=== PATIENT | female | born 1955 | race African-American/Black ===

== ENCOUNTER 2016-04-02 08:01 | Emergency (ER) | payer MEDICARE, MEDICAID ==
[2016-04-02] MEDS ORDERED: ASPIRIN 81 MG TABLET, CHEWABLE PO ONE (09:52)
[2016-04-02 10:38] LABS: ABSOLUTE BASOPHILS # (AUTO) 0.1 10^3/uL (0.0-0.2); ABSOLUTE EOSINOPHILS # (AUTO) 0.1 10^3/uL (0.0-0.6); ABSOLUTE LYMPHOCYTES (AUTO) 4.2 10^3/uL (0.5-4.7); ABSOLUTE MONOCYTES (AUTO) 0.5 10^3/uL (0.1-1.4); ABSOLUTE NEUT (AUTO) 4.5 10^3/uL (1.7-8.2); BASOPHILS % (AUTO) 1.4 % (0-2); EOSINOPHILS % (AUTO) 0.9 % (0-6); LYMPHOCYTES % (AUTO) 44.7 % (13-45); MEAN CORPUSCULAR HEMOGLOBIN 27.9 pg (27.0-33.4); MEAN CORPUSCULAR HGB CONC 33.3 g/dL (32.0-36.0); MEAN CORPUSCULAR VOLUME 84 fl (80-97); MONOCYTES % (AUTO) 4.8 % (3-13); RED BLOOD COUNT 4.28 10^6/uL (3.72-5.28); SEGMENTED NEUTROPHILS % (AUTO) 48.2 % (42-78); WHITE BLOOD COUNT 9.4 10^3/uL (4.0-10.5)
[2016-04-02 10:50] LABS: ALANINE AMINOTRANSFERASE 15 U/L (9-52); ALBUMIN 3.9 g/dL (3.5-5.0); ALKALINE PHOSPHATASE 89 U/L (38-126); ANION GAP 13 (5-19); ASPARTATE AMINO TRANSFERASE 32 U/L (14-36); BILIRUBIN,TOTAL 0.3 mg/dL (0.2-1.3); BLOOD UREA NITROGEN 9 mg/dL (7-20); CARBON DIOXIDE 27 mmol/L (22-30); CHLORIDE 105 mmol/L (98-107); CREATINE KINASE 98 U/L (30-135); CREATININE RESULT 0.72 mg/dL (0.52-1.25); GLUCOSE 94 mg/dL (75-110); POTASSIUM 3.9 mmol/L (3.6-5.0); SODIUM 144.5 mmol/L (137-145); TOTAL PROTEIN 7.3 g/dL (6.3-8.2)
[2016-04-02 10:59] LABS: PARTIAL THROMBOPLASTIN TIME 26.9 SEC (23.5-35.8)
[2016-04-02 11:04] LABS: CREATINE KINASE MB < 0.22 ng/mL (<4.55); TROPONIN I < 0.012 ng/mL
--- NOTE | 2016-04-02 13:41 | EKG REPORT ---
SEVERITY:- ABNORMAL ECG - SINUS RHYTHM PROBABLE INFERIOR INFARCT, AGE INDETERMINATE ABNRM R PROG, CONSIDER ASMI OR LEAD PLACEMENT : Confirmed by: Hilda Haley MD 02-Apr-2016 13:41:15
--- NOTE | 2016-04-02 13:57 | ER Document Report ---
ED Extremity Problem, Upper - General Chief Complaint: Arm Pain Stated Complaint: NECK PAIN Mode of Arrival: Ambulatory Information source: Patient Notes: 60 y/o F presents to ED c/o right shoulder pain TRAVEL OUTSIDE OF THE [place] IN LAST 30 DAYS: No - Related Data Allergies/Adverse Reactions: Sulfa (Sulfonamide Antibiotics) Allergy (Verified 04/02/16 08:12) sulfamethoxazole [From Septra] Allergy (Verified 04/02/16 08:12) trimethoprim [From Septra] Allergy (Verified 04/02/16 08:12) Past Medical History - Social History Smoking Status: Current Every Day Smoker Chew tobacco use (# tins/day): No Frequency of alcohol use: None Drug Abuse: None Family History: Arthritis, CAD, CVA, DM, Hyperlipidemia, Hypertension, Malignancy, Thyroid Disfunction Patient has suicidal ideation: No Patient has homicidal ideation: No - Past Medical History Cardiac Medical History: Reports: Hx Coronary Artery Disease, Hx Heart Attack, Hx Hypercholesterolemia, Hx Hypertension Pulmonary Medical History: Reports: Hx Asthma, Hx Bronchitis, Hx COPD, Hx Pneumonia Neurological Medical History: Reports: Hx Migraine Endocrine Medical History: Reports: Hx Diabetes Mellitus Type 2 GI Medical History: Reports: Hx Gastritis Musculoskeltal Medical History: Reports Hx Arthritis Psychiatric Medical History: Reports: Hx Anxiety, Hx Depression Past Surgical History: Reports: Hx Section - x2, Hx Cholecystectomy, Hx Hysterectomy, Hx Orthopedic Surgery - Immunizations Immunizations up to date: Yes Hx Diphtheria, Pertussis, Tetanus Vaccination: Yes Physical Exam - Vital signs Vitals: Temp Pulse Resp BP Pulse Ox 98.0 F 86 22 H 146/74 H 97 04/02/16 08:06 04/02/16 08:06 04/02/16 08:06 04/02/16 08:06 04/02/16 08:06 Course - Vital Signs Vital signs: Temp Pulse Resp BP Pulse Ox 97.6 F 78 16 150/57 H 97 04/02/16 14:06 04/02/16 14:06 04/02/16 14:06 04/02/16 14:06 04/02/16 14:06 - Laboratory Result Diagrams: 04/02/16 10:14 04/02/16 10:14 Laboratory results interpreted by me: 04/02/16 10:14 RDW 15.0 H Discharge - Discharge Clinical Impression: Right arm pain Right shoulder pain Qualifiers: Chronicity: acute Qualified Code(s): M25.511 - Pain in right shoulder Condition: Stable Disposition: HOME, SELF-CARE Instructions: Arm Pain, Nonspecific ([facility]), Anti-Inflammatory Medication ([facility]) Additional Instructions: Follow-up with your primary care provider tomorrow as discussed. Return to the emergency department for any worsening symptoms or concerns. Prescriptions: Naproxen [Naprosyn 375 Mg Tablet] 375 mg PO BIDP PRN #10 tablet PRN Reason: Forms: Elevated Blood Pressure Referrals: [facility] [Primary Care Provider] - Follow up tomorrow
[2016-04-02 14:09] VITALS: BP 150/57
== END 2016-04-02 14:06 | disposition home or self-care (01) ==
LOC: ER 08:01
DX: M79.601 Pain in right arm (principal); M25.511 Pain in right shoulder; F17.200 Nicotine dependence, unspecified, uncomplicated; I25.10 Atherosclerotic heart disease of native coronary artery without angina pectoris; E78.00 Pure hypercholesterolemia, unspecified; I10 Essential (primary) hypertension; E11.9 Type 2 diabetes mellitus without complications; J44.9 Chronic obstructive pulmonary disease, unspecified; Z88.2 Allergy status to sulfonamides; Z88.3 Allergy status to other anti-infective agents; Z90.710 Acquired absence of both cervix and uterus; Z90.49 Acquired absence of other specified parts of digestive tract; I25.2 Old myocardial infarction
CPT/HCPCS: 93005; 99284; 36415; 82553; 82550; 85025; 85610; 85730; 80053; 84484; 71020; 73030; 70450; 93010; A9270

== ENCOUNTER → 2016-05-29 | Outpatient (CLI) | payer MEDICARE, MEDICAID | LOC: RAD 13:22 | PROVIDERS: ATTEND Physician Assistant | DX: M25.511 Pain in right shoulder (principal); M54.2 Cervicalgia | CPT/HCPCS: 72141 ==

== ENCOUNTER 2016-10-22 07:42 | Day surgery (SDC) | payer MEDICARE, MEDICAID ==
--- NOTE | 2016-10-21 11:08 | HISTORY AND PHYSICAL E ---
History and Physical NAME: AMOS REYNOSO : 1955 AGE: 61Y ADMITTED: 10/22/2016 ROOM: CHIEF COMPLAINT: Constipation, history of polyps, a planned colonoscopy. HISTORY OF PRESENT ILLNESS: The patient did have colon exam which showed polyp in 2013. Because of history of polyps, diverticulosis and constipation, patient admitted for colonoscopy. PAST SURGICAL HISTORY: 1. . 2. Back surgery. 3. Cholecystectomy. FAMILY HISTORY: Father is alive, kidney dialysis. Mom is alive. SOCIAL HISTORY: The patient is . She smokes a pack of cigarettes every 3 days. REVIEWING OF SYSTEMS: RESPIRATORY: Asthma. CARDIAC: Hypertension and high cholesterol. ENDOCRINE: Negative. GASTROINTESTINAL: Constipation, abdominal pain. PHYSICAL EXAMINATION: VITAL SIGNS: Blood pressure 120/70, pulse 80, respirations 20, temperature is 98. HEAD, EYES, EARS, NOSE, THROAT: Normal. ABDOMEN: Soft. NEUROLOGIC: Negative. CONCLUSION: 1. Changed bowel habits. 2. Abdominal pain. 3. History of polyps. 4. Constipation. PLAN: Colonoscopy scheduled for 10/22. DICTATING PHYSICIAN: DORIS GARCIA M.D. [id number] PHY#: [id number] ID: [id number] JOB#: [id number] ACCT: [id number] cc:DORIS GARCIA M.D. >
[~2016-10-22 07:42] MED LIST: EPINEPHRINE INJ 1 MG/10 ML DISP.SYRIN ONE; FLUMAZENIL INJ 0.5 MG/5 ML VIAL IV ONE; GLUCAGON,HUMAN RECOMB 1 MG INJ ONE; GLYCOPYRROLATE INJ 0.4 MG/2 ML VIAL ONE; LIDOCAINE 2% JELLY 30 ML TUBE ONE; NALOXONE HCL INJ/PF 0.4 MG/1 ML SDV ONE; ONDANSETRON HCL INJ/PF 4 MG/2 ML SDV ONE
[2016-10-22] MEDS: MIDAZOLAM 2 MG/2 ML INJ ONE ×3 (08:20→08:30)
[2016-10-22] MEDS: FENTANYL CITRATE INJ/PF 100 MCG/2 ML AMPUL ONE ×2 (08:22→08:26)
--- NOTE | 2016-10-22 09:33 | OPERATIVE REPORT E ---
Operative Report NAME: AMOS REYNOSO : 1955 AGE: 61Y DATE OF SURGERY: 10/22/2016 ROOM: PREOPERATIVE DIAGNOSES: 1. Abdominal pain. 2. Change in bowel habits. 3. History of polyps. POSTOPERATIVE DIAGNOSES: 1. Diminutive polyp in rectum. 2. Diminutive polyp rectosigmoid. PROCEDURE: Colonoscopy to the cecum. SURGEON: DORIS GARCIA M.D. ANESTHESIA: Versed 4 and fentanyl 100. PROCEDURE: Rectal exam shows diminutive polyp in rectum. Sigmoid diminutive polyp. Descending colon normal. Transverse colon normal. Ascending normal. Cecum normal. Scope withdrawn from cecum, ascending, transverse, descending, sigmoid all the way to the rectum. The patient did have moderate amount of stool scattered around her colon. Lavage flush. Again, scope withdrawn from cecum. Ascending normal. Prominent ileocecal valve. Patient does have scarring adhesions from in the past. I did not see any malignancy. Diminutive polyps. No blockage. No obstruction. CONCLUSION: Complete colonoscopy to the cecum. Diminutive polyps in rectum and sigmoid. PLAN: We will do lab studies. Continue present management. Give patient copy of her operative report to take to her primary doctor. DICTATING PHYSICIAN: DORIS GARCIA M.D. [id number] Y#: [id number] ID: [id number] JOB#: [id number] ACCT: [id number] cc:DORIS GARCIA M.D. >
[2016-10-22 09:49] VITALS: BP 136/71
[2016-10-22 10:04] LABS: ABSOLUTE BASOPHILS # (AUTO) 0.1 10^3/uL (0.0-0.2); ABSOLUTE EOSINOPHILS # (AUTO) 0.1 10^3/uL (0.0-0.6); ABSOLUTE LYMPHOCYTES (AUTO) 3.5 10^3/uL (0.5-4.7); ABSOLUTE MONOCYTES (AUTO) 0.6 10^3/uL (0.1-1.4); ABSOLUTE NEUT (AUTO) 6.2 10^3/uL (1.7-8.2); BASOPHILS % (AUTO) 0.6 % (0-2); EOSINOPHILS % (AUTO) 0.6 % (0-6); HEMATOCRIT 35.6 % (36.0-47.0); HEMOGLOBIN 11.8 g/dL (12.0-15.5); HGB HCT DIFFERENCE -0.2; LYMPHOCYTES % (AUTO) 33.4 % (13-45); MEAN CORPUSCULAR HEMOGLOBIN 28.5 pg (27.0-33.4); MEAN CORPUSCULAR HGB CONC 33.1 g/dL (32.0-36.0); MEAN CORPUSCULAR VOLUME 86 fl (80-97); MONOCYTES % (AUTO) 6.1 % (3-13); RED BLOOD COUNT 4.14 10^6/uL (3.72-5.28); RED CELL DISTRIBUTION WIDTH 14.7 % (11.5-14.0); SEGMENTED NEUTROPHILS % (AUTO) 59.3 % (42-78); WHITE BLOOD COUNT 10.4 10^3/uL (4.0-10.5)
[2016-10-22 10:30] LABS: ALANINE AMINOTRANSFERASE 15 U/L (9-52); ALBUMIN 3.9 g/dL (3.5-5.0); ALKALINE PHOSPHATASE 92 U/L (38-126); AMYLASE 49 U/L (30-110); ANION GAP 15 (5-19); ASPARTATE AMINO TRANSFERASE 15 U/L (14-36); BILIRUBIN,DIRECT 0.3 mg/dL (0.0-0.4); BILIRUBIN,TOTAL 0.5 mg/dL (0.2-1.3); BLOOD UREA NITROGEN 7 mg/dL (7-20); C-REACTIVE PROTEIN 7.4 mg/L (<10.0); CARBON DIOXIDE 22 mmol/L (22-30); CHLORIDE 105 mmol/L (98-107); CREATININE RESULT 0.75 mg/dL (0.52-1.25); GLUCOSE 96 mg/dL (75-110); LIPASE 45.8 U/L (23-300); POTASSIUM 3.7 mmol/L (3.6-5.0); SODIUM 142.4 mmol/L (137-145); TOTAL PROTEIN 6.8 g/dL (6.3-8.2)
--- NOTE | 2016-10-22 15:06 | DISCHARGE SUMMARY E ---
Discharge Summary NAME: AMOS REYNOSO : 1955 AGE: 61Y ADMITTED: 10/22/2016 DISCHARGED: 10/22/2016 HISTORY: The patient is 61, ALLERGIC TO SULFA, presented with abdominal pain and change in bowel habits. She does have a remote history of polyps. Today's colonoscopy shows no diverticulosis. She does have previous history of polyps. Today I did not see diverticulosis. She does have diminutive polyps too small to biopsy in the rectum and the sigmoid. DISCHARGE PLAN: 1. Lab studies. 2. Soft diet. 3. Follow-up office visit in the next few days. MEDICATIONS: 1. She takes MiraLax. 2. Amitiza. 3. Ultram. 4. Xanax. 5. Zyrtec. CONCLUSIONS: 1. Abdominal pain, etiology undetermined. 2. Diminutive rectosigmoid polyps. DICTATING PHYSICIAN: DORIS GARCIA M.D. [id number] PHY#: [id number] ID: [id number] JOB#: [id number] ACCT: [id number] cc:DORIS GARCIA M.D. >
== END 2016-10-22 10:10 | disposition home or self-care (01) ==
LOC: END 07:42
PROVIDERS: ATTEND Specialist
PROC: 0DJD8ZZ Inspection of Lower Intestinal Tract, Via Natural or Artificial Opening Endoscopic (ICD-10-PCS; principal; 2016-10-22 08:00)
DX: D12.7 Benign neoplasm of rectosigmoid junction (principal); K66.0 Peritoneal adhesions (postprocedural) (postinfection); F17.210 Nicotine dependence, cigarettes, uncomplicated; I10 Essential (primary) hypertension; E78.00 Pure hypercholesterolemia, unspecified; J45.909 Unspecified asthma, uncomplicated; Z88.2 Allergy status to sulfonamides; Z79.899 Other long term (current) drug therapy
CPT/HCPCS: 45378; 36415; 82150; 83690; 85025; 86140; 80053; J2250; J3010; J1610; J2405; J0171; J2310; J3490

== ENCOUNTER 2016-11-06 09:35 | Day surgery (SDC) | payer MEDICARE, MEDICAID ==
[~2016-11-06 09:35] MED LIST changes: +FENTANYL CITRATE INJ/PF 100 MCG/2 ML AMPUL ONE; -GLUCAGON,HUMAN RECOMB 1 MG INJ ONE; -LIDOCAINE 2% JELLY 30 ML TUBE ONE
--- NOTE | 2016-11-06 10:26 | HISTORY AND PHYSICAL E ---
History and Physical NAME: AMOS REYNOSO : 1955 AGE: 61Y ADMITTED: 11/06/2016 ROOM: CHIEF COMPLAINT: 1. Anemia. 2. Fullness in the left upper quadrant. The patient is to be admitted on the for upper endoscopy. HISTORY OF PRESENT ILLNESS: Patient had upper GI done back on 04/05/2007. Upper GI was unremarkable. Small bowel series unremarkable. The patient presented at this time regarding fullness in the stomach and anemia. Colonoscopy on 01/04/2014 shows rectal polyps, benign. The CEA is normal. Patient did have colonoscopy on October 22. Presented for colonoscopy; shows the following: He did have history of polyps, diverticulosis. SURGICAL HISTORY: 1. . 2. Back surgery. 3. Cholecystectomy. FAMILY HISTORY: Father is alive; he is on dialysis. Mom is alive. SOCIAL HISTORY: She is . Smokes pack of cigarettes every 3 days. REVIEWING OF SYSTEMS: RESPIRATORY: Asthma. CARDIAC: Hypertension. ENDOCRINE: Negative. GASTROINTESTINAL: Abdominal pain, anemia, constipation. PHYSICAL EXAMINATION: VITAL SIGNS: Blood pressure 110/70, pulse 80, respirations 18, temperature is 98. HEAD, EYES, EARS, NOSE, THROAT: Normal. ABDOMEN: Soft. NEUROLOGIC: Exam negative. MEDICATIONS: Patient takes the followin. Prevacid. 2. At times she is on Protonix. 3. Zyrtec. 4. Tramadol. CONCLUSION: 1. ANEMIA. HEMOGLOBIN 11; HEMATOCRIT 35. 2. FULLNESS, LEFT UPPER QUADRANT. PLAN: 1. Patient to have abdominal CT and upper endoscopy. 2. Upper scope scheduled for 11/06/2016; today is 10/30/2016. DICTATING PHYSICIAN: DORIS GARCIA M.D. [id number] PHY#: [id number] ID: [id number] JOB#: [id number] ACCT: [id number] cc:DORIS GARCIA M.D. >
[2016-11-06] MEDS: MIDAZOLAM 2 MG/2 ML INJ ONE ×2 (10:32→10:37)
[2016-11-06 11:46] VITALS: BP 143/73
--- NOTE | 2016-11-07 09:59 | DISCHARGE SUMMARY E ---
Discharge Summary NAME: AMOS REYNOSO : 1955 AGE: 61Y ADMITTED: 11/06/2016 DISCHARGED: 11/06/2016 HOSPITAL COURSE: The patient is a 61-year-old female on the following medications: Ambien, Amitiza, Bentyl, Dexilant, Miralax, Neurontin, Premarin, ProAir, Ultram, Valium, verapamil, Xanax, Zoloft, Zyrtec. Today's upper scope was successful. She had no ulcers, no malignancy. She did have a 2 cm hiatus hernia with no stricture, no varices, mild esophagitis. Prominent gastric folds with no ulcer, mild gastritis. Edematous duodenal bulbs. Edematous pulse with no ulcers and moderate duodenitis. DISCHARGE PLAN: Assurance. Awaiting CT report at [facility]. Patient to continue her Dexilant. We will see her in the office in the next few days. DICTATING PHYSICIAN: DORIS GARCIA M.D. [id number] PHY#: [id number] ID: [id number] JOB#: [id number] ACCT: [id number] cc:DORIS GARCIA M.D. >
--- NOTE | 2016-11-07 10:25 | OPERATIVE REPORT E ---
Operative Report NAME: AMOS REYNOSO : 1955 AGE: 61Y DATE OF SURGERY: 11/06/2016 ROOM: PREOPERATIVE DIAGNOSIS: Abdominal pain. POSTOPERATIVE DIAGNOSES: 1. Hiatus hernia, 1 cm. 2. Mild esophagitis. 3. Mild gastritis. 4. Moderate duodenitis. 5. No ulcers, no malignancy. PROCEDURE: Esophagoscopy, gastroscopy, duodenoscopy. SURGEON: DORIS GARCIA M.D. ANESTHESIA: Versed 4 mg and Fentanyl 100 mcg. TISSUE REMOVED OR ALTERED: None. DESCRIPTION OF PROCEDURE: After adequate sedation, the baby scope passed with some difficulty into the esophagus. Esophagoscopy: Junction at 37 cm, mild esophagitis, 1-cm hiatus hernia. Gastroscopy: No ulcers, prominent folds, mild gastritis. Duodenoscopy: Edematous folds with no ulcers, moderate duodenitis. CONCLUSIONS: 1. Hiatus hernia. 2. Mild esophagitis. 3. Mild gastritis. 4. Edematous folds with duodenitis. PLAN: The patient tolerated the procedure well, discharged to her room in stable condition. DICTATING PHYSICIAN: DORIS GARCIA M.D. [id number] [id number] PHY#: [id number] ID: [id number] JOB#: [id number] ACCT: [id number] cc:DORIS GARCIA M.D. >
== END 2016-11-06 12:00 | disposition home or self-care (01) ==
LOC: END 09:35
PROVIDERS: ATTEND Specialist
PROC: 0DJD8ZZ Inspection of Lower Intestinal Tract, Via Natural or Artificial Opening Endoscopic (ICD-10-PCS; principal; 2016-11-06 10:00)
DX: K44.9 Diaphragmatic hernia without obstruction or gangrene (principal); D64.9 Anemia, unspecified; K29.70 Gastritis, unspecified, without bleeding; K29.80 Duodenitis without bleeding; J45.909 Unspecified asthma, uncomplicated; I10 Essential (primary) hypertension; F17.210 Nicotine dependence, cigarettes, uncomplicated; Z79.899 Other long term (current) drug therapy; Z79.51 Long term (current) use of inhaled steroids; Z79.891 Long term (current) use of opiate analgesic
CPT/HCPCS: 43235; J2250; J3010; J2405; J0171; J2310; J3490

== ENCOUNTER → 2016-11-17 | Outpatient (CLI) | payer MEDICARE, MEDICAID ==
--- NOTE | 2016-11-17 13:16 | RADIOLOGY REPORT (SQ) ---
EXAM DESCRIPTION: CT SOFT TISSUE NECK WITHOUT COMPLETED DATE/TIME: 11/17/2016 9:22 am REASON FOR STUDY: DYSPHAGIA (R13.10) R13.10 DYSPHAGIA, UNSPECIFIED COMPARISON: CT brain 07/09/2014, 08/01/2015, 04/02/2016 MRI cervical spine 05/29/2016 Barium swallow 11/17/2016 TECHNIQUE: Noncontrast scanning from skull base through lung apices with review of bone, soft tissue and lung windows. Reconstructed coronal and sagittal MPR images reviewed. All images stored on PAC S. All CT scanners at this facility use dose modulation, iterative reconstruction, and/or weight based d osing when appropriate to reduce radiation dose to as low as reasonably achievable (ALARA). [facility]: Dose Right [facility]: CareDose [facility]: Dose Right [facility]: Teradose 4D [facility]: [employer] RADIATION DOSE: 23 mGy. LIMITATIONS: None. FINDINGS: SKULL BASE: Intact. MAJOR SALIVARY GLANDS: No solid or cystic masses. No inflammatory changes. LYMPHADENOPATHY: No adenopathy. Left jugulodigastric lymph node upper limits of normal, 13 x 8 mm si ze. MUCOSAL MASSES OR ASYMMETRY: No mucosal masses or asymmetry. There are mildly prominent lingual tons ils, best shown on axial images go 35 through 42, and sagittal images 67 through 74. Mucosal spaces are otherwise unremarkable. LARYNX/CORDS: No abnormal findings. LUNG APICES: Clear. BONES: Old cervical spine fusion at C4-5 without hardware. Disc space narrowing with mild anterior p osterior osteophyte formation and disc bulge at C5-6. Due mild bilateral C5-6 foraminal narrowing fr om facet and uncovertebral hypertrophy. Moderate right C3-4 foraminal narrowing from facet and uncov ertebral hypertrophy. THYROID: Normal size. No masses. PARANASAL SINUSES: Clear. OTHER: No other significant finding. IMPRESSION: No CT findings to explain history dysphagia other than prominent lingual tonsils. TECHNICAL DOCUMENTATION: JOB ID: [id number] Quality ID # [id number]: Final reports with documentation of one or more dose reduction techniques (e.g., Au tomated exposure control, adjustment of the mA and/or kV according to patient size, use of iterative reconstruction technique) 2010 [employer]- All Rights Reserved
== END ==
LOC: RAD 08:58
PROVIDERS: ATTEND Specialist
DX: R13.10 Dysphagia, unspecified (principal)
CPT/HCPCS: 70490; 74210

== ENCOUNTER 2017-07-19 21:58 | Emergency (ER) | payer MEDICARE ==
[2017-07-19 22:19] VITALS: BP 147/76
[2017-07-19] MEDS ORDERED: VALACYCLOVIR HCL 500 MG TABLET PO ONE (22:57)
--- NOTE | 2017-07-19 22:59 | ER Document Report ---
HPI - HPI Patient complains to provider of: Skin rash Onset: Other - 2 days Onset/Duration: Persistent Quality of pain: Burning Pain Level: 3 Context: Patient complains of painful rash to right upper chest area. Patient was concerned that she might have been bit by insects. Patient states rash has been painful. Patient denies any fever. Associated Symptoms: Other - Painful rash to the right upper chest area. denies : Fever Exacerbated by: Denies Relieved by: Denies Similar symptoms previously: No Recently seen / treated by doctor: No - ROS ROS below otherwise negative: Yes Systems Reviewed and Negative: Yes All other systems reviewed and negative - CONSTITUTIONAL Constitutional: DENIES: Fever - CARDIOVASCULAR Cardiovascular: DENIES: Chest pain - RESPIRATORY Respiratory: DENIES: Trouble Breathing, Coughing - GASTROINTESTINAL Gastrointestinal: DENIES: Nausea, Patient vomiting - REPRODUCTIVE Reproductive: DENIES: : - DERM Skin Problems: Rash Past Medical History - General Information source: Patient - Social History Smoking Status: Current Every Day Smoker Smoking Education Provided: Yes Frequency of alcohol use: None Drug Abuse: None Occupation: None Family History: Arthritis, CAD, CVA, DM, Hyperlipidemia, Hypertension, Malignancy, Thyroid Disfunction - Past Medical History Cardiac Medical History: Reports: Hx Heart Attack - 2012, Hx Hypercholesterolemia, Hx Hypertension Denies: Hx Coronary Artery Disease Pulmonary Medical History: Reports: Hx Asthma, Hx Bronchitis Denies: Hx COPD, Hx Pneumonia Neurological Medical History: Reports: Hx Migraine. Denies: Hx Cerebrovascular Accident, Hx Seizures Endocrine Medical History: Reports: Hx Diabetes Mellitus Type 2 GI Medical History: Reports: Hx Gastritis Musculoskeltal Medical History: Reports Hx Arthritis Psychiatric Medical History: Reports: Hx Anxiety, Hx Depression Past Surgical History: Reports: Hx Section - x2, Hx Cholecystectomy, Hx Hysterectomy, Hx Orthopedic Surgery - Immunizations Immunizations up to date: Yes Hx Diphtheria, Pertussis, Tetanus Vaccination: Yes Hx Pneumococcal Vaccination: 03/23/16 Vertical Provider Document - CONSTITUTIONAL Agree With Documented VS: Yes Exam Limitations: No Limitations General Appearance: WD/WN, No Apparent Distress - INFECTION CONTROL TRAVEL OUTSIDE OF THE [place] IN LAST 30 DAYS: No - HEENT HEENT: Atraumatic, Normocephalic - NECK Neck: Normal Inspection - RESPIRATORY Respiratory: Breath Sounds Normal, No Respiratory Distress - CARDIOVASCULAR Cardiovascular: Regular Rate, Regular Rhythm - BACK Back: Normal Inspection - MUSCULOSKELETAL/EXTREMETIES Musculoskeletal/Extremeties: CRUZ LORENZO - NEURO Level of Consciousness: Awake, Alert, Appropriate Motor/Sensory: No Motor Deficit - DERM Integumentary: Warm, Dry, Rash - Erythematous lesions to right anterior chest wall, some lesions vesicular appearing others with some crusting Course - Re-evaluation Re-evalutation: 07/20/17 Patient with skin rash that appears to be consistent with herpes zoster. Patient nontoxic in appearance. No skin lesions noted to facial area, patient denies any ocular complaints. Will treat her symptoms with antiviral medication. Patient takes tramadol for pain symptoms at home. Patient encouraged to follow-up with primary doctor for recheck. - Vital Signs Vital signs: Temp Pulse Resp BP Pulse Ox 98.6 F 90 22 H 147/76 H 94 07/19/17 22:15 07/19/17 22:15 07/19/17 22:15 07/19/17 22:15 07/19/17 22:15 Discharge - Discharge Clinical Impression: Shingles Qualifiers: Herpes zoster complications: without complications Qualified Code(s): B02.9 - Zoster without complications Condition: Stable Disposition: HOME, SELF-CARE Instructions: Shingles ([facility]) Additional Instructions: Return immediately for any new or worsening symptoms Followup with your primary care provider, call tomorrow to make a followup appointment Take your tramadol that you have at home as directed for pain relief Prescriptions: Valacyclovir HCl [Valacyclovir] 1,000 mg PO TID #20 tablet Referrals: ELDA CHÁVEZ PA-C [PHYSICIAN HEARING CONSULTANT] - Follow up tomorrow
== END 2017-07-19 23:30 | disposition home or self-care (01) ==
LOC: ER 21:58
DX: B02.9 Zoster without complications (principal); F17.200 Nicotine dependence, unspecified, uncomplicated; I25.2 Old myocardial infarction; I10 Essential (primary) hypertension; J45.909 Unspecified asthma, uncomplicated; E11.9 Type 2 diabetes mellitus without complications
CPT/HCPCS: 99282; A9270

== ENCOUNTER 2017-09-16 06:39 | Emergency (ER) | payer MEDICARE ==
--- NOTE | 2017-09-16 07:38 | ER Document Report ---
ED General - General Chief Complaint: Insect Bite Stated Complaint: FOOT PAIN Time Seen by Provider: 09/16/17 07:38 Mode of Arrival: Ambulatory TRAVEL OUTSIDE OF THE [place] IN LAST 30 DAYS: No - HPI Notes: 62-year-old female with a history of diabetes presents to the ED with complaints of having bilateral insects bites he for the last 3 days. Worse with time, has tried zbbr-yzb-twfamod calamine lotion without relief, reports itching and burning. Itching is 4 out of 10, constant. Denies any open wounds or drainage. Patient reports chills, denies fevers. Denies chest pain, palpitations, shortness of breath, dyspnea, nausea, vomiting, diarrhea, abdominal pain, hematuria,blurred vision, double vision, loss of vision, speech changes, LH, dizziness, syncope, headaches, wheezing, ST, URI, neck pain, weakness, bowel or bladder dysfunction, saddle anesthesia, numbness or tingling in bilateral upper or lower extremities equally, muscle paralysis, weakness in bilateral upper or lower extremities equally or rash. - Related Data Allergies/Adverse Reactions: Sulfa (Sulfonamide Antibiotics) Allergy (Verified 11/06/16 09:51) sulfamethoxazole [From Septra] Allergy (Verified 11/06/16 09:51) trimethoprim [From Novra] Allergy (Verified 11/06/16 09:51) Past Medical History - General Information source: Patient - Social History Smoking Status: Unknown if Ever Smoked Family History: Arthritis, CAD, CVA, DM, Hyperlipidemia, Hypertension, Malignancy, Thyroid Disfunction - Past Medical History Cardiac Medical History: Reports: Hx Heart Attack - 2012, Hx Hypercholesterolemia, Hx Hypertension Denies: Hx Coronary Artery Disease Pulmonary Medical History: Reports: Hx Asthma, Hx Bronchitis Denies: Hx COPD, Hx Pneumonia Neurological Medical History: Reports: Hx Migraine. Denies: Hx Cerebrovascular Accident, Hx Seizures Endocrine Medical History: Reports: Hx Diabetes Mellitus Type 2 GI Medical History: Reports: Hx Gastritis Musculoskeltal Medical History: Reports Hx Arthritis Psychiatric Medical History: Reports: Hx Anxiety, Hx Depression Past Surgical History: Reports: Hx Section - x2, Hx Cholecystectomy, Hx Hysterectomy, Hx Orthopedic Surgery - Immunizations Immunizations up to date: Yes Hx Diphtheria, Pertussis, Tetanus Vaccination: Yes Hx Pneumococcal Vaccination: 03/23/16 Review of Systems - Review of Systems Constitutional: See HPI EENT: No symptoms reported Cardiovascular: No symptoms reported Respiratory: No symptoms reported Gastrointestinal: No symptoms reported Genitourinary: No symptoms reported Female Genitourinary: No symptoms reported Musculoskeletal: No symptoms reported Skin: See HPI Hematologic/Lymphatic: No symptoms reported Neurological/Psychological: No symptoms reported Physical Exam - Vital signs Vitals: Temp Pulse Resp BP Pulse Ox 99.4 F 85 18 170/88 H 97 09/16/17 06:45 09/16/17 06:45 09/16/17 06:45 09/16/17 06:45 09/16/17 06:45 - Notes Notes: PHYSICAL EXAMINATION: GENERAL: Well-appearing, well-nourished and in no acute distress. HEAD: Atraumatic, normocephalic. EYES: Pupils equal round and reactive to light, extraocular movements intact, conjunctiva are normal. ENT: Nares patent, oropharynx clear without exudates. Moist mucous membranes. NECK: Normal range of motion, supple without lymphadenopathy LUNGS: Breath sounds clear to auscultation bilaterally and equal. No wheezes rales or rhonchi. HEART: Regular rate and rhythm without murmurs ABDOMEN: Soft, nontender, nondistended abdomen. No guarding, no rebound. No masses appreciated. Female : deferred Musculoskeletal: Normal range of motion, no pitting or edema. No cyanosis. NEUROLOGICAL: Cranial nerves grossly intact. Normal speech, normal gait. Normal sensory, motor exams PSYCH: Normal mood, normal affect. SKIN: Warm, Dry, normal turgor, no rashes or lesions noted. Noted erythema to bilateral lower feet with bug bites. No surrounding erythema or lymphadenopathy Course - Re-evaluation Re-evalutation: 09/22/17 07:07 Healthy 62-year-old female afebrile, vitals stable and in no distress presents for evaluation of bug bites to her bilateral legs, due to patient being a uncontrolled diabetic as well as appearance from wound, will obtain CBC CMP. CBC negative for leukocytosis, anemia. CMP negative for hepatic or renal deficiency, no electrolyte disturbances. Discussed with patient we will prescribe her Keflex and Bactrim, to take with food and eat yogurt daily. This is a 20 minutes on 20 minutes off several times a day. I have reevaluated this patient multiple times and no significant life threatening changes, no signs of toxicity, sepsis or peritonitis are noted. The patient and I have discussed the diagnosis and risks, and we agree with discharging home and close follow- up. We also discussed returning to the Emergency Department immediately if new or worsening symptoms occur with the understanding that symptoms and presentations can change. At this time will discharge with return precautions and follow-up recommendations. Verbal discharge instructions given a the bedside and opportunity for questions given. We have discussed the symptoms which are most concerning (e.g., fever, worsening pain, numbness and/or tingling in legs, etc) that necessitate immediate return. Medication warnings reviewed. All questions and concerns answered by this provider. Patient is in agreement with this plan and has verbalized understanding of return precautions and the need for primary care follow-up in the next 24-72 hours. Patient verbalized understanding of plan of care and agree with plan of care. - Vital Signs Vital signs: Temp Pulse Resp BP Pulse Ox 99.4 F 80 18 146/74 H 98 09/16/17 06:45 09/16/17 09:32 09/16/17 09:32 09/16/17 09:32 09/16/17 09:32 - Laboratory Result Diagrams: 09/16/17 08:25 09/16/17 08:25 Laboratory results interpreted by me: 09/16/17 08:25 Hgb 11.6 L Hct 34.8 L RDW 14.9 H Discharge - Discharge Clinical Impression: Bug bite Qualifiers: Encounter type: initial encounter Qualified Code(s): W57.XXXA - Bitten or stung by nonvenomous insect and other nonvenomous arthropods, initial encounter Condition: Good Disposition: HOME, SELF-CARE Instructions: Insect Bites ([facility]) Additional Instructions: Return immediately for any new or worsening symptoms. Follow up with primary care provider, call tomorrow to make followup appointment. Prescriptions: Triamcinolone Acetonide 15 gm TP BID 10 Days #60 oint...g. Forms: Return to Work Referrals: GLORIA CURTIS MD [Primary Care Provider] - Follow up tomorrow (in 24 to 48 hours)
[2017-09-16 08:47] LABS: ABSOLUTE BASOPHILS # (AUTO) 0.1 10^3/uL (0.0-0.2); ABSOLUTE EOSINOPHILS # (AUTO) 0.1 10^3/uL (0.0-0.6); ABSOLUTE MONOCYTES (AUTO) 0.6 10^3/uL (0.1-1.4); ABSOLUTE NEUT (AUTO) 4.7 10^3/uL (1.7-8.2); BASOPHILS % (AUTO) 0.9 % (0-2); EOSINOPHILS % (AUTO) 0.8 % (0-6); HEMATOCRIT 34.8 % (36.0-47.0); HEMOGLOBIN 11.6 g/dL (12.0-15.5); LYMPHOCYTES % (AUTO) 42.3 % (13-45); MEAN CORPUSCULAR HEMOGLOBIN 28.4 pg (27.0-33.4); MEAN CORPUSCULAR HGB CONC 33.4 g/dL (32.0-36.0); MEAN CORPUSCULAR VOLUME 85 fl (80-97); MONOCYTES % (AUTO) 6.4 % (3-13); PLATELET COUNT 246 10^3/uL (150-450); RED CELL DISTRIBUTION WIDTH 14.9 % (11.5-14.0); SEGMENTED NEUTROPHILS % (AUTO) 49.6 % (42-78); TOTAL CELLS COUNTED % (AUTO) 100 %; WHITE BLOOD COUNT 9.4 10^3/uL (4.0-10.5)
[2017-09-16 09:08] LABS: ANION GAP 9 (5-19); BLOOD UREA NITROGEN 12 mg/dL (7-20); CALCIUM 9.1 mg/dL (8.4-10.2); CARBON DIOXIDE 28 mmol/L (22-30); CHLORIDE 106 mmol/L (98-107); GLUCOSE 94 mg/dL (75-110); POTASSIUM 4.1 mmol/L (3.6-5.0); SODIUM 142.9 mmol/L (137-145)
[2017-09-16 09:34] VITALS: BP 146/74
[2017-09-16] MEDS ORDERED: FENTANYL CITRATE INJ/PF 100 MCG/2 ML AMPUL IV ONE (11:04)
== END 2017-09-16 09:32 | disposition home or self-care (01) ==
LOC: ER 06:39
DX: S90.862A Insect bite (nonvenomous), left foot, initial encounter (principal); S90.861A Insect bite (nonvenomous), right foot, initial encounter; M79.671 Pain in right foot; M79.672 Pain in left foot; W57.XXXA Bitten or stung by nonvenomous insect and other nonvenomous arthropods, initial encounter; I10 Essential (primary) hypertension; J45.909 Unspecified asthma, uncomplicated; E11.9 Type 2 diabetes mellitus without complications
CPT/HCPCS: 36415; 80048; 85025; 99282

== ENCOUNTER 2017-11-22 07:22 | Emergency (ER) | payer MEDICARE ==
[2017-11-22 07:30] VITALS: BP 185/82
[2017-11-22] MEDS ORDERED: BUPIVACAINE HCL 0.5 % INJ/PF 30 ML SDV INJ ONE (07:48)
[2017-11-22] MEDS ORDERED: HYDROCODONE/ACETAMINOPHEN 5-325 MG (6 TAB/ER DISP) PO PRN (07:48)
[2017-11-22] MEDS ORDERED: PENICILLIN V POTASSIUM 500 MG TABLET PO ONE (07:49)
--- NOTE | 2017-11-22 07:51 | ER Document Report ---
HPI - HPI Pain Level: 5 Notes: Patient is a 62-year-old female with chief complaint of dental pain. Patient reports she has been having intermittent pain over the last 3 months, last night it got so bad she could not sleep. Patient reports pain at tooth #3. Patient denies any fevers. Reports she went to a dentist about 2 months ago when this first started in the stated that they would not pull the 12th because I cannot find any problem with it. - EENT EENT: DENIES: Sore Throat - NEURO Neurology: DENIES: Headache - CARDIOVASCULAR Cardiovascular: DENIES: Chest pain - GASTROINTESTINAL Gastrointestinal: DENIES: Abdominal Pain - REPRODUCTIVE Reproductive: DENIES: : Past Medical History - General Information source: Patient - Social History Smoking Status: Current Every Day Smoker Chew tobacco use (# tins/day): No Frequency of alcohol use: None Drug Abuse: None Family History: Arthritis, CAD, CVA, DM, Hyperlipidemia, Hypertension, Malignancy, Thyroid Disfunction Patient has suicidal ideation: No Patient has homicidal ideation: No - Past Medical History Cardiac Medical History: Reports: Hx Heart Attack - 2011, Hx Hypercholesterolemia, Hx Hypertension Denies: Hx Coronary Artery Disease Pulmonary Medical History: Reports: Hx Asthma, Hx Bronchitis Denies: Hx COPD, Hx Pneumonia Neurological Medical History: Reports: Hx Migraine. Denies: Hx Cerebrovascular Accident, Hx Seizures Endocrine Medical History: Reports: Hx Diabetes Mellitus Type 2 Renal/ Medical History: Denies: Hx Peritoneal Dialysis GI Medical History: Reports: Hx Gastritis Musculoskeletal Medical History: Reports Hx Arthritis Psychiatric Medical History: Reports: Hx Anxiety, Hx Depression Past Surgical History: Reports: Hx Breast Surgery - rt breast biopsy, Hx Section - x2, Hx Cholecystectomy, Hx Hysterectomy, Hx Orthopedic Surgery - Immunizations Immunizations up to date: Yes Hx Diphtheria, Pertussis, Tetanus Vaccination: Yes Hx Pneumococcal Vaccination: 03/23/16 Vertical Provider Document - CONSTITUTIONAL Notes: PHYSICAL EXAMINATION: GENERAL: Well-appearing, well-nourished and in no acute distress. HEAD: Atraumatic, normocephalic. EYES: Pupils equal round extraocular movements intact, conjunctiva are normal. ENT: Nares patent, erythema around tooth #5, no drainable abscess noted. NECK: Normal range of motion LUNGS: No respiratory distress Musculoskeletal: Normal range of motion NEUROLOGICAL: Normal speech, normal gait. PSYCH: Normal mood, normal affect. SKIN: Warm, Dry, normal turgor, no rashes or lesions noted. - INFECTION CONTROL TRAVEL OUTSIDE OF THE [place] IN LAST 30 DAYS: No Course - Re-evaluation Re-evalutation: 11/22/17 07:50 No drainable abscess identified near tooth #5. Will perform a dental block, place patient on penicillin and Vicodin close follow-up with dental. - Vital Signs Vital signs: Temp Pulse Resp BP Pulse Ox 98.0 F 93 16 185/82 H 100 11/22/17 07:29 11/22/17 07:29 11/22/17 07:29 11/22/17 07:29 11/22/17 07:29 Discharge - Discharge Clinical Impression: Tooth ache Condition: Stable Disposition: HOME, SELF-CARE Additional Instructions: TOOTHACHE: Your pain is due to dental decay. The tooth must be repaired in order for you to feel better. You will, therefore, be referred to a dentist. We do not have dentists on the staff at [facility]. Severe swelling or drainage around a tooth usually means a dental abscess. This also requires evaluation and treatment by the dentist, but antibiotics may be prescribed while awaiting dental treatment. You should be rechecked immediately if you develop major swelling of the face, increasing pain, a lump in the jaw or gums, headache, difficulty swallowing, or fever. ORAL NARCOTIC MEDICATION: You have been given a prescription for pain control. This medication is a narcotic. It's best taken with food, as nausea can result if taken on an empty stomach. Don't operate machinery or drive within six hours of taking this medication. Do not combine this medicine with alcohol, or with any medication which can cause sedation (such as cold tablets or sleeping pills) unless you get permission from the physician. Narcotics tend to cause constipation. If possible, drink plenty of fluids and eat a diet high in fiber and fruits. Please be aware that prescription narcotics also have the potential for abuse. People become addicted to these medications because of the general sense of wellbeing that they induce. This feeling along with a significant reduction in tension, anxiety, and aggression provides a stimulating seductive quality to these drugs. Once your pain is under control, we encourage you to discard your unused narcotics. PENICILLIN V K: You have been given a prescription for Penicillin VK. Your physician has determined that this is the best antibiotic for your condition. Pen VK can be taken with meals, however more of the antibiotic gets into the bloodstream if it's taken on an empty stomach. Penicillin usually has no side effects. However, allergy to penicillins is common. If you have had an allergic reaction to any drug of the penicillin family, you should never take any other penicillin. Notify your doctor at once if you develop hives, itching, swelling, faintness, or shortness of breath. FOLLOW-UP CARE: You have been referred for follow-up care to the dentists listed below. Call the dentists office for an appointment as you were instructed or within the next two days. If you experience worsening or a significant change in your symptoms, notify the physician immediately or return to the Emergency Department at any time for re-evaluation. Take ibuprofen 600 mg every 6 hours, use the narcotic pain medication for severe pain only. [facility] [address] Referrals: GLORIA CURTIS MD [ACTIVE STAFF] - Follow up as needed
[2017-11-22] MEDS ORDERED: OXYCODONE-ACETAMINOPHEN 5-325 MG TABLET PO ONE (08:20)
== END 2017-11-22 08:40 | disposition home or self-care (01) ==
LOC: ER 07:22
DX: K08.89 Other specified disorders of teeth and supporting structures (principal); F17.200 Nicotine dependence, unspecified, uncomplicated; I10 Essential (primary) hypertension; E11.9 Type 2 diabetes mellitus without complications
CPT/HCPCS: 99282; 64400; J3490; A9270 ×3

== ENCOUNTER → 2018-01-20 | Outpatient (CLI) | payer MEDICARE ==
[2018-01-20 17:35] LABS: ABSOLUTE BASOPHILS # (AUTO) 0.1 10^3/uL (0.0-0.2); ABSOLUTE EOSINOPHILS # (AUTO) 0.1 10^3/uL (0.0-0.6); ABSOLUTE LYMPHOCYTES (AUTO) 2.9 10^3/uL (0.5-4.7); ABSOLUTE MONOCYTES (AUTO) 0.4 10^3/uL (0.1-1.4); ABSOLUTE NEUT (AUTO) 4.8 10^3/uL (1.7-8.2); BASOPHILS % (AUTO) 1.2 % (0-2); EOSINOPHILS % (AUTO) 1.1 % (0-6); HEMATOCRIT 35.4 % (36.0-47.0); HEMOGLOBIN 11.5 g/dL (12.0-15.5); MEAN CORPUSCULAR HEMOGLOBIN 27.6 pg (27.0-33.4); MEAN CORPUSCULAR HGB CONC 32.7 g/dL (32.0-36.0); MEAN CORPUSCULAR VOLUME 84 fl (80-97); MONOCYTES % (AUTO) 5.2 % (3-13); PLATELET COUNT 286 10^3/uL (150-450); RED BLOOD COUNT 4.19 10^6/uL (3.72-5.28); RED CELL DISTRIBUTION WIDTH 15.4 % (11.5-14.0); SEGMENTED NEUTROPHILS % (AUTO) 57.5 % (42-78); TOTAL CELLS COUNTED % (AUTO) 100 %; WHITE BLOOD COUNT 8.4 10^3/uL (4.0-10.5)
[2018-01-20 18:00] LABS: ALANINE AMINOTRANSFERASE 18 U/L (9-52); ALBUMIN 4.1 g/dL (3.5-5.0); ALKALINE PHOSPHATASE 92 U/L (38-126); ANION GAP 11 (5-19); ASPARTATE AMINO TRANSFERASE 16 U/L (14-36); BILIRUBIN,DIRECT 0.2 mg/dL (0.0-0.4); BILIRUBIN,TOTAL 0.4 mg/dL (0.2-1.3); BLOOD UREA NITROGEN 13 mg/dL (7-20); C-REACTIVE PROTEIN 14.8 mg/L (<10.0); CALCIUM 9.6 mg/dL (8.4-10.2); CARBON DIOXIDE 28 mmol/L (22-30); CHLORIDE 103 mmol/L (98-107); GLUCOSE 98 mg/dL (75-110); POTASSIUM 4.5 mmol/L (3.6-5.0); SODIUM 141.5 mmol/L (137-145); TOTAL PROTEIN 7.3 g/dL (6.3-8.2)
[2018-01-20 18:15] LABS: ERYTHROCYTE SEDIMENTATION RATE 41 mm/hr (0-30)
== END ==
LOC: OD 16:50
PROVIDERS: ATTEND Physician Assistant
DX: M25.50 Pain in unspecified joint (principal); R60.9 Edema, unspecified
CPT/HCPCS: 36415; 80053; 85025; 85652; 86038; 86140; 86430

== ENCOUNTER → 2018-01-27 | Outpatient (CLI) | payer MEDICAID, MEDICARE ==
--- NOTE | 2018-01-27 17:05 | RADIOLOGY REPORT (SQ) ---
EXAM DESCRIPTION: MRI RT UPPER JOINT WITHOUT COMPLETED DATE/TIME: 01/27/2018 3:07 pm REASON FOR STUDY: RIGHT SHOULDER PAIN (M25.511) M25.511 PAIN IN RIGHT SHOULDER COMPARISON: MRI right shoulder 05/29/2016 TECHNIQUE: Right shoulder images acquired and stored on PACS. Multiplanar imaging to include fat sen sitive sequences such as T1, water sensitive sequences such as FST2/STIR, cartilage sensitive sequenc es such as FSPD/gradient-echo sequences. LIMITATIONS: None. FINDINGS: BONE MARROW AND CORTEX: None marrow signal abnormalities worrisome for occult fracture. S mall subcortical cysts along the posterior right humeral head greater tuberosity JOINT OR BURSAL EFFUSION: No significant joint or bursal fluid. No suggestion of loose bodies. GLENO-HUMERAL ARTICULATION: Mild chondromalacia. No bulky osteophytes. Normal alignment ACROMION AND AC JOINT: Type 2 acromion with moderate acromioclavicular joint synovial thickening and bony spurring narrowing the subacromial space. No subacromial/subdeltoid bursa fluid. ROTATOR CUFF AND INTERVAL: Tendinopathy throughout the distal supra and infraspinatus tendons without full-thickness tear. subscapularis is intact. No rotator interval tear. No rotator interval thickening to suggest adhesive capsulitis. LABRUM AND BICEPS LABRAL COMPLEX: Mild increased intrinsic signal of intra-articular long head prasanth ps tendon from tendinopathy. No gross labral tear or paralabral cyst REMAINDER OF LABRUM AND IGHL : No gross tear or paralabral cyst formation. Labral evaluation is less than optimal without joint distention. No thickening of IGHL to suggest adhesive capsulitis. PERIARTICULAR AND ADJACENT SOFT TISSUES: No masses or abnormal nodes. OTHER: No other significant finding. IMPRESSION: Acromioclavicular joint hypertrophy Supra and infraspinatus tendinopathy without full-thickness tear TECHNICAL DOCUMENTATION: JOB ID: [id number] [employer]- All Rights Reserved Reading location - IP/workstation name: [email or web address]
== END ==
LOC: RAD 14:08
PROVIDERS: ATTEND Physician Assistant
DX: M25.511 Pain in right shoulder (principal); M89.311 Hypertrophy of bone, right shoulder

== ENCOUNTER → 2018-05-17 | Outpatient (CLI) | payer MEDICARE ==
--- NOTE | 2018-05-18 10:39 | RADIOLOGY REPORT (SQ) ---
EXAM DESCRIPTION: MRI LT UPPER JOINT WITHOUT COMPLETED DATE/TIME: 05/17/2018 5:34 pm REASON FOR STUDY: M25.522 PAIN IN LEFT ELBOW M25.522 PAIN IN LEFT ELBOW COMPARISON: None. TECHNIQUE: Left elbow images acquired and stored on PACS. Multiplanar images to include fat sensitiv e sequences as T1, fluid sensitive sequences as T2/STIR, cartilage sensitive sequences as FSPD, and g radient echo sequences. LIMITATIONS: Mild motion artifact FINDINGS: BONE MARROW: No alteration of signal to suggest marrow replacement or edema. No occult fra cture. No large osteophytes. JOINT EFFUSION: None noted. No loose bodies. ARTICULAR SURFACES: Normal. MEDIAL COLLATERAL LIGAMENT COMPLEX: Intact without edema or tear. MEDIAL EPICONDYLE AND COMMON FLEXOR TENDON: No tendinopathy. No partial or full-thickness tear. LATERAL COLLATERAL LIGAMENT: Intact without edema or tear. LATERAL EPICONDYLE AND COMMON EXTENSOR TENDON: No tendinopathy. No partial or full-thickness tear. LATERAL ULNAR COLLATERAL LIGAMENT: Intact without evidence for tear. BICEPS TENDON: Intact. No partial or full-thickness tendon tear. No muscle edema. TRICEPS TENDON: Intact. ULNAR NERVE: Well-visualized without edema or encroachment. ADJACENT SOFT TISSUES: No masses or edema. OTHER: No other significant finding. IMPRESSION: NORMAL MRI OF THE ELBOW. TECHNICAL DOCUMENTATION: JOB ID: [id number] 2010 [employer]- All Rights Reserved Reading location - IP/workstation name: [email or web address]
== END ==
LOC: RAD 18:33
PROVIDERS: ATTEND Physician Assistant
DX: M25.522 Pain in left elbow (principal)

== ENCOUNTER 2020-03-28 16:42 | Emergency (ER) | payer MEDICARE, MEDICAID ==
--- NOTE | 2020-03-28 19:13 | ER Document Report ---
ED Medical Screen (RME) - General Chief Complaint: Chest Pain Stated Complaint: CHEST PAIN Time Seen by Provider: 03/28/20 19:07 Primary Care Provider: MELA DAMON PA [Primary Care Provider] - Follow up as needed Mode of Arrival: Ambulatory Information source: Patient Notes: HPI; 64-year-old female past medical history significant for an SC presents to the emergency room complaining of worsening midsternal chest pain for the past 2 days. She has been using Radha-[place], antacids, and Gas-X without relief. States she took 1 nitro last night without relief. Denies any nausea, vomiting, no diaphoresis. Unable to describe the pain just states "it hurts" PE: Alert and oriented x3. Lungs: Clear to auscultation without rales, rhonchi, wheezes. Heart: Regular rate rhythm without murmurs, rubs, gallops. I have greeted and performed a rapid initial assessment of this patient. A comprehensive ED assessment and evaluation of the patient, analysis of test results and completion of the medical decision making process will be conducted by additional ED providers. I have specifically instructed the patient or family members with the patient to immediately return to any nursing staff should anything change in the patient's condition or with their chief complaint. TRAVEL OUTSIDE OF THE [place] IN LAST 30 DAYS: No - Related Data Allergies/Adverse Reactions: Sulfa (Sulfonamide Antibiotics) Allergy (Verified 03/28/20 19:05) sulfamethoxazole [From Septra] Allergy (Verified 03/28/20 19:05) trimethoprim [From Septra] Allergy (Verified 03/28/20 19:05) Past Medical History - Past Medical History Cardiac Medical History: Reports: Hx Heart Attack - 2012, Hx Hypercholesterolemia, Hx Hypertension Denies: Hx Coronary Artery Disease Pulmonary Medical History: Reports: Hx Asthma, Hx Bronchitis Denies: Hx COPD, Hx Pneumonia Neurological Medical History: Reports: Hx Migraine. Denies: Hx Cerebrovascular Accident, Hx Seizures Endocrine Medical History: Reports: Hx Diabetes Mellitus Type 2 Renal/ Medical History: Denies: Hx Peritoneal Dialysis GI Medical History: Reports: Hx Gastritis Musculoskeltal Medical History: Reports Hx Arthritis Psychiatric Medical History: Reports: Hx Anxiety, Hx Depression Past Surgical History: Reports: Hx Breast Surgery - rt breast biopsy, Hx Section - x2, Hx Cholecystectomy, Hx Hysterectomy, Hx Orthopedic Surgery - Immunizations Immunizations up to date: Yes Hx Diphtheria, Pertussis, Tetanus Vaccination: Yes Physical Exam - Vital signs Vitals: Temp Pulse Resp BP Pulse Ox 98.4 F 80 20 155/79 H 97 03/28/20 16:55 03/28/20 16:55 03/28/20 16:55 03/28/20 16:55 03/28/20 16:55 Course - Vital Signs Vital signs: Temp Pulse Resp BP Pulse Ox 98.4 F 80 20 155/79 H 97 03/28/20 16:55 03/28/20 16:55 03/28/20 16:55 03/28/20 16:55 03/28/20 16:55 Doctor's Discharge - Discharge Referrals: MELA DAMON PA [Primary Care Provider] - Follow up as needed
--- NOTE | 2020-03-28 19:33 | RADIOLOGY REPORT (SQ) ---
EXAM DESCRIPTION: CHEST 2 VIEWS IMAGES COMPLETED DATE/TIME: 03/28/2020 7:24 pm REASON FOR STUDY: chest pain COMPARISON: 04/02/2016 EXAM PARAMETERS: NUMBER OF VIEWS: two views TECHNIQUE: Digital Frontal and Lateral radiographic views of the chest acquired. RADIATION DOSE: NA LIMITATIONS: none FINDINGS: LUNGS AND PLEURA: No opacities, masses or pneumothorax. No pleural effusion. MEDIASTINUM AND HILAR STRUCTURES: No masses or contour abnormalities. HEART AND VASCULAR STRUCTURES: Heart normal size. No evidence for failure. BONES: No acute findings. HARDWARE: None in the chest. OTHER: No other significant finding. IMPRESSION: NO ACUTE RADIOGRAPHIC FINDING IN THE CHEST. TECHNICAL DOCUMENTATION: JOB ID: [id number] 2010 [employer]- All Rights Reserved Reading location - IP/workstation name: [email or web address]
[2020-03-28 20:24] LABS: ABSOLUTE EOSINOPHILS # (AUTO) 0.1 10^3/uL (0.0-0.6); ABSOLUTE LYMPHOCYTES (AUTO) 2.8 10^3/uL (0.5-4.7); ABSOLUTE MONOCYTES (AUTO) 0.4 10^3/uL (0.1-1.4); ABSOLUTE NEUT (AUTO) 4.7 10^3/uL (1.7-8.2); BASOPHILS % (AUTO) 0.4 % (0-2); EOSINOPHILS % (AUTO) 0.8 % (0-6); HEMATOCRIT 34.5 % (36.0-47.0); HEMOGLOBIN 11.2 g/dL (12.0-15.5); LYMPHOCYTES % (AUTO) 34.8 % (13-45); MEAN CORPUSCULAR HEMOGLOBIN 26.6 pg (27.0-33.4); MEAN CORPUSCULAR HGB CONC 32.4 g/dL (32.0-36.0); MEAN CORPUSCULAR VOLUME 82 fl (80-97); MONOCYTES % (AUTO) 5.5 % (3-13); PLATELET COUNT 284 10^3/uL (150-450); RED CELL DISTRIBUTION WIDTH 15.1 % (11.5-14.0); SEGMENTED NEUTROPHILS % (AUTO) 58.5 % (42-78); TOTAL CELLS COUNTED % (AUTO) 100 %
[2020-03-28 20:39] LABS: ALBUMIN 4.2 g/dL (3.5-5.0); ALKALINE PHOSPHATASE 87 U/L (38-126); ANION GAP 6 (5-19); ASPARTATE AMINO TRANSFERASE 24 U/L (14-36); BILIRUBIN,DIRECT 0.2 mg/dL (0.0-0.4); BILIRUBIN,TOTAL 0.4 mg/dL (0.2-1.3); BLOOD UREA NITROGEN 5 mg/dL (7-20); CALCIUM 9.7 mg/dL (8.4-10.2); CARBON DIOXIDE 30 mmol/L (22-30); CHLORIDE 104 mmol/L (98-107); GLUCOSE 106 mg/dL (75-110); POTASSIUM 4.4 mmol/L (3.6-5.0); TOTAL PROTEIN 7.5 g/dL (6.3-8.2)
--- NOTE | 2020-03-28 23:40 | EKG REPORT ---
SEVERITY:- ABNORMAL ECG - SINUS RHYTHM INFERIOR INFARCT, AGE INDETERMINATE : Confirmed by: Aleksandra Holguin 28-Mar-2020 23:39:07
--- NOTE | 2020-03-29 02:40 | ER Document Report ---
ED Cardiac - General Chief Complaint: Chest Pain Stated Complaint: CHEST PAIN Time Seen by Provider: 03/28/20 19:07 Primary Care Provider: MELA DAMON PA [Primary Care Provider] - Follow up in 3-5 days SHAJI RATLIFF MD [ACTIVE STAFF] - Follow up in 3-5 days Mode of Arrival: Ambulatory TRAVEL OUTSIDE OF THE [place] IN LAST 30 DAYS: No - HPI Notes: Patient is a 64-year-old female with a past medical history of high blood pressure who presents with painful swallowing. Patient states that about 2 days ago, she swallowed a pill and ever since then she has been having pain in her midsternal chest. It is not pleuritic. She states it is worse with eating and drinking and palpation. Pain is constant. She has been able to eat and drink but that makes it worse. She denies any cough or cold symptoms. No fevers or chills. - Related Data Allergies/Adverse Reactions: Sulfa (Sulfonamide Antibiotics) Allergy (Verified 03/28/20 19:05) sulfamethoxazole [From Septra] Allergy (Verified 03/28/20 19:05) trimethoprim [From Septra] Allergy (Verified 03/28/20 19:05) Past Medical History - General Information source: Patient - Social History Smoking Status: Current Every Day Smoker Family History: Arthritis, CAD, CVA, DM, Hyperlipidemia, Hypertension, Malignancy, Thyroid Disfunction Patient has homicidal ideation: No - Past Medical History Cardiac Medical History: Reports: Hx Heart Attack - 2011, Hx Hypercho lesterolemia, Hx Hypertension Denies: Hx Coronary Artery Disease Pulmonary Medical History: Reports: Hx Asthma, Hx Bronchitis Denies: Hx COPD, Hx Pneumonia Neurological Medical History: Reports: Hx Migraine. Denies: Hx Cerebrovascular Accident, Hx Seizures Endocrine Medical History: Reports: Hx Diabetes Mellitus Type 2 Renal/ Medical History: Denies: Hx Peritoneal Dialysis GI Medical History: Reports: Hx Gastritis Musculoskeletal Medical History: Reports Hx Arthritis Psychiatric Medical History: Reports: Hx Anxiety, Hx Depression Past Surgical History: Reports: Hx Breast Surgery - rt breast biopsy, Hx Section - x2, Hx Cholecystectomy, Hx Hysterectomy, Hx Orthopedic Surgery - Immunizations Immunizations up to date: Yes Hx Diphtheria, Pertussis, Tetanus Vaccination: Yes Hx Pneumococcal Vaccination: 03/23/16 Review of Systems - Review of Systems Notes: CONSTITUTIONAL: No fever, fatigue or weight loss. SKIN: No rash. HENT: No congestion, ear pain, or sore throat. CARDIOVASCULAR: Positive for midsternal chest pain. RESPIRATORY: No cough, shortness of breath, congestion, or wheezing. GASTROINTESTINAL: No abdominal pain, nausea, vomiting, bloody stools or diarrhea. MUSCULOSKELETAL: No joint pain or swelling. NEUROLOGIC: No seizures. No headache, focal weakness or sensory changes. HEMATOLOGIC: No unusual bruising or bleeding. PSYCHIATRIC: No depression or anxiety. Physical Exam - Vital signs Vitals: Temp Pulse Resp BP Pulse Ox 98.4 F 80 20 155/79 H 97 03/28/20 16:55 03/28/20 16:55 03/28/20 16:55 03/28/20 16:55 03/28/20 16:55 - General General appearance: Appears well In distress: None Notes: VITAL SIGNS: Within normal limits. GENERAL: No acute distress, non-toxic appearance. HEAD: Normal with no signs of head trauma. EYES: Conjunctiva normal, no discharge. EARS: Hearing grossly intact. NOSE: Normal. NECK: Normal range of motion, no tenderness, supple, no lymphadenopathy, No adenopathy, no JVD. CHEST: Clear breath sounds bilaterally. No wheezes, rales, or rhonchi. Discomfort to palpation of midsternal chest above the xiphoid. No obvious rash. CARDIAC: Regular rate and rhythm. S1 and S2, without murmurs, gallops, or rubs. VASCULAR: No Edema. ABDOMEN: Normal and soft with no tenderness, no masses or pulsatile masses. MUSCULOSKELETAL: Good range of motion of all major joints. Extremities without clubbing, cyanosis or edema. NEUROLOGICAL: Alert and oriented x 3. No focal sensory or strength deficits. Speech normal. Follows commands appropriately. PSYCHIATRIC: Normal Affect, judgement and mood. SKIN: Normal appearance with no rashes or lesions. Course - Re-evaluation Re-evalutation: 03/29/20 02:55 Patient's lab work is unremarkable. She had 2 normal troponins. Her EKG is nonacute. She states that all her symptoms started after she took a pill. Likely, this is pill esophagitis. I will do a trial of a GI cocktail and reevaluate. Patient had minimal improvement with the GI cocktail. She is complaining of chest pain that is reproducible. I will evaluate the CTA. CTA was negative. I gave her Toradol. On reassessment, patient is sitting up. She states she feels much better. She states she still has some pressure with palpation. I discussed with her that she needs to follow-up with GI as she may need an endoscopy. I counseled her on eating soft foods and avoiding irritating foods. Patient was told to take Tylenol and warm compresses on the area. Etiology could be pill esophagitis versus a muscular pain as it is worse with palpation but it is also worse when swallowing. Patient is tolerating water in the ED. Patient was given strict return precautions. She is very agreeable to the plan. 03/29/20 07:08 - Vital Signs Vital signs: Temp Pulse Resp BP Pulse Ox 98.4 F 80 18 157/85 H 96 03/28/20 16:55 03/28/20 16:55 03/29/20 06:05 03/29/20 05:05 03/29/20 06:05 - Laboratory Results Result Diagrams: 03/28/20 20:10 03/28/20 20:10 Laboratory Results Interpreted: 03/28/20 03/28/20 20:10 20:10 Hgb 11.2 L Hct 34.5 L MCH 26.6 L RDW 15.1 H BUN 5 L Critical Laboratory Results Reviewed: No Critical Results - Radiology Results Critical Radiology Results Reviewed: No Critical Results - EKG Interpretation by Me EKG shows normal: Sinus rhythm Rate: Normal Rhythm: NSR When compared to previous EKG there are: No significant change Additional EKG results interpreted by me: 03/29/20 02:39 Sinus rhythm at a rate of 77. QTc 462. No acute ST changes. Previous EKG is similar. Discharge - Discharge Clinical Impression: Odynophagia Chest pain Qualifiers: Chest pain type: unspecified Qualified Code(s): R07.9 - Chest pain, unspecified Disposition: HOME, SELF-CARE Instructions: Chest Wall Pain ([facility]), Chest Pain of Unclear Cause ([facility]) Additional Instructions: Your work-up was reassuring. Please follow-up with your family doctor. I will also provide the number for GI as you may need to have another endoscopy. Please eat soft foods until you feel better. You may also use Tylenol and ibuprofen for pain. You may also place warm compresses on the area. Please ret urn to the ER immediately for any worsening or return of symptoms. Referrals: MELA DAMON PA [Primary Care Provider] - Follow up in 3-5 days SHAJI RATLIFF MD [ACTIVE STAFF] - Follow up in 3-5 days
[2020-03-29] MEDS ORDERED: LIDOCAINE 2% VISCOUS SOLN 15 ML UDCUP PO ONE (02:50)
[2020-03-29] MEDS ORDERED: MAG HYDROX/AL HYDROX/SIMETH SUSP 30 ML UDCUP PO ONE (02:50)
[2020-03-29] MEDS ORDERED: METOCLOPRAMIDE HCL ORAL SOLN 10 MG/10 ML UDCUP PO ONE (02:50)
[2020-03-29] MEDS ORDERED: KETOROLAC TROMETHAMINE INJ/PF 30 MG/1 ML SDV IV ONE (03:43)
[2020-03-29 05:53] VITALS: BP 157/85
--- NOTE | 2020-03-29 06:01 | RADIOLOGY REPORT (SQ) ---
CLINICAL HISTORY: lower chest pain, "something stuck" feel after taking a pill for heartburn COMPARISON: None. TECHNIQUE: CT CHEST ANGIOGRAPHY WITH IV CONTRAST on 03/29/2020 3:42 AM BOXING INSTRUCTOR. MIPS reconstructions were generated. This exam was performed according to our departmental dose-optimization program, which includes automated exposure control, adjustment of the mA and/or kV according to patient size and/or use of iterative reconstruction technique. MIP images were generated. FINDINGS: Thoracic aorta is normal in course and caliber. 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 The heart is normal in size. There is no pericardial effusion. Intrathoracic lymph nodes are not enlarged. There is no pleural effusion, pleural thickening or pneumothorax. Central airways are patent. There is mild upper lung paraseptal emphysema. There are no acute abnormalities within the limited images of the upper abdomen. There are no acute osseous findings. No suspicious bony lesions. IMPRESSION: No definite acute process.
== END 2020-03-29 06:34 | disposition home or self-care (01) ==
LOC: ER 16:42
DX: R07.9 Chest pain, unspecified (principal); R13.10 Dysphagia, unspecified; I10 Essential (primary) hypertension; F17.200 Nicotine dependence, unspecified, uncomplicated; E11.9 Type 2 diabetes mellitus without complications; J45.909 Unspecified asthma, uncomplicated; Z88.2 Allergy status to sulfonamides; Z88.1 Allergy status to other antibiotic agents
CPT/HCPCS: 93005; 99285; 96374; 36415; 85025; 80053; 84484; 71046; 71275; 93010; J3490; A9270 ×2; J1885